=== PATIENT | male | born 1975 ===

== ENCOUNTER 2018-08-18 13:54 | Emergency (ER) | payer OTHER ==
[~2018-08-18] VITALS: Ht 177.8 cm; Wt 79.4 kg
== END 2018-08-18 18:09 | disposition home or self-care (01) ==
LOC: ER 13:54
DX: M41.86 Other forms of scoliosis, lumbar region (principal); M54.5 Low back pain

== ENCOUNTER 2021-08-25 08:29 | Outpatient (CLI) | payer OTHER | END 2021-08-25 08:35 | disposition home or self-care (01) | LOC: RAD 08:29 | PROVIDERS: ATTEND Podiatrist Foot Surgery | DX: M19.072 Primary osteoarthritis, left ankle and foot (principal) ==

== ENCOUNTER 2021-12-05 09:35 | Outpatient (CLI) | payer OTHER | END 2021-12-05 09:51 | disposition home or self-care (01) | LOC: TOM 09:35 | PROVIDERS: ATTEND Specialist | DX: R10.9 Unspecified abdominal pain (principal); R10.32 Left lower quadrant pain ==

== ENCOUNTER 2022-08-23 15:35 | Outpatient (CLI) | payer OTHER | END 2022-08-26 09:06 | disposition home or self-care (01) | LOC: RAD 15:35 | DX: M99.01 Segmental and somatic dysfunction of cervical region (principal); M99.02 Segmental and somatic dysfunction of thoracic region; M99.03 Segmental and somatic dysfunction of lumbar region ==